=== PATIENT | female | born 1935 | race Caucasian/White ===

== ENCOUNTER → 2024-05-03 | Outpatient (CLI) | payer OTHER ==
[~2024-05-03] MED LIST: IOHEXOL-350 75 ML VIAL IV ONE
--- NOTE | 2024-05-03 11:35 | HMCIMG ---
CT ABDOMEN WITHOUT AND WITH CONTRAST. CT PELVIS WITHOUT AND WITH CONTRAST INDICATION: Unspecified hydronephrosis. TECHNIQUE: Routine transaxial images at 5 mm slice thickness were obtained prior to the administration of contrast material through the abdomen only, and after the intravenous infusion of 75 mL of Omnipaque 350 through the abdomen and pelvis without adverse effects. Delayed images of the abdomen and pelvis were also obtained. Coronal and sagittal reformatted imaging acquired for interpretation. Oral contrast was administered. CT was performed with one or more of the following dose reduction techniques: Automated exposure control, adjustment of the mA and/or kV according to patient size, or use of iterative reconstruction technique. COMPARISON: None FINDINGS: ABDOMEN: Heart size is normal. Visible lung bases are clear. The liver is normal in size and smooth in contour without lesions or biliary duct dilation. The spleen is normal in size without lesions. The gallbladder is absent. The pancreas appears normal without pancreatic duct dilation. The adrenal glands appear normal. Mild to moderate right hydroureteronephrosis may be related to narrowing/stricture at the right ureteropelvic junction, but no evidence for obstructing calcification or mass. Left kidney and ureter appear normal. Right kidney appears otherwise normal Cortical nephrograms are symmetric and normal in appearance bilaterally. No significant abdominal, retrocrural or retroperitoneal adenopathy noted.No evidence for intra-abdominal free air or organized fluid collection. Mild calcific plaque is noted along the abdominal aortic and iliac vessel bae without aneurysmal dilation or dissection. PELVIS: No evidence for free air or organized pelvic fluid collection. No significant pelvic adenopathy detected. Innumerable diverticula along the colon. Contrast material noted within the small and large bowel loops without extravasation. Terminal ileum appears unremarkable. The appendix appears normal. The urinary bladder appears unremarkable. 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 IMPRESSION: Findings suggesting mild to moderate narrowing at the right ureteropelvic junction, and secondary mild to moderate right hydronephrosis, without evidence for obstructing stone or mass. Diverticulosis coli.
== END | disposition home or self-care (01) ==
LOC: RAH 07:44
PROVIDERS: ATTEND Internal Medicine
DX: K57.30 Diverticulosis of large intestine without perforation or abscess without bleeding (principal); N13.30 Unspecified hydronephrosis; R10.0 Acute abdomen; I70.0 Atherosclerosis of aorta; Z90.49 Acquired absence of other specified parts of digestive tract
CPT/HCPCS: 74178; Q9967

== ENCOUNTER → 2024-06-20 | Outpatient (CLI) | payer OTHER ==
--- NOTE | 2024-06-20 16:05 | HMCIMG ---
Head injury a week ago CT HEAD/BRAIN W/O CONTRAST HISTORY: No additional history given. COMPARISON: None TECHNIQUE: Multiple sequential axial images of the head were obtained from the base of the skull through vertex. Patient was not given contrast through intravenous route. FINDINGS: The ventricles and extraventricular CSF spaces are dilated consistent with cerebral atrophy. Nonspecific white matter changes seen. There is no midline shift, mass effect or herniation. No acute intracranial bleed is seen. Visualized portion of the paranasal sinuses are grossly within normal limits. IMPRESSION: 1. No acute intracranial bleed is seen. 2. Atrophy with white matter changes. CT was performed with one or more following dose reduction techniques: automated exposure control, adjustment of the mA and kv according to patient's size, or use of a iterative reconstruction technique.
== END | disposition home or self-care (01) ==
LOC: RAH 15:17
PROVIDERS: ATTEND Internal Medicine
DX: S09.90XA Unspecified injury of head, initial encounter (principal); G31.9 Degenerative disease of nervous system, unspecified; G93.89 Other specified disorders of brain; R90.82 White matter disease, unspecified; R29.6 Repeated falls; X58.XXXA Exposure to other specified factors, initial encounter; Y93.89 Activity, other specified; Y92.89 Other specified places as the place of occurrence of the external cause; Y99.8 Other external cause status
CPT/HCPCS: 70450